=== PATIENT | male | born 1970 ===

== ENCOUNTER 2021-02-22 08:59 | Day surgery (SDC) | payer BC ==
[~2021-02-22 08:59] MED LIST: Lactated Ringers 1,000 ML IV SCH; Propofol 200 MG/20 ML SDV ONE; fentaNYL 100 MCG/2 ML SDV ONE
--- NOTE | 2021-02-22 09:36 | PCM.PREANE ---
Preanesthetic Assessment - Anesthesia/Transfusion/Family Hx Anesthesia History: Prior Anesthesia Without Reaction Family History of Anesthesia Reaction: No Transfusion History: No Prior Transfusion(s) - Review of Systems General: No Symptoms Pulmonary: No Symptoms Cardiovascular: No Symptoms Gastrointestinal: No Symptoms Neurological: No Symptoms Other: Reports: None - Physical Assessment NPO Status Date: 02/22/21 NPO Status Time: 00:01 Height: 6 ft 2 in Weight: 271 lb ASA Class: 2 Mental Status: Alert & Oriented x3 Airway Class: Mallampati = 2 Dentition: Reports: Normal Dentition ROM/Head Extension: Limited/Partial Lungs: Clear to Auscultation, Normal Respiratory Effort Cardiovascular: Regular Rate, Regular Rhythm - Allergies Allergies/Adverse Reactions: Allergies Allergy/AdvReac Type Severity Reaction Status Date / Time No Known Allergies Allergy Verified 02/18/21 11:38 - Anesthesia Plan Pre-Op Medication Ordered: None - Acknowledgements Anesthesia Type Planned: General Anesthesia Pt an Appropriate Candidate for the Planned Anesthesia: Yes Alternatives and Risks of Anesthesia Discussed w Pt/Guardian: Yes Pt/Guardian Understands and Agrees with Anesthesia Plan: Yes Additional Comments: npo hayfever asthma daily inhalers htn no cv problems obesity bmi 35 tob none etoh none L corneal transplant 2006 PreAnesthesia Questionnaire HEENT History: Reports: Other (See Below) Other HEENT History: wears contacts Cardiovascular History: Reports: Hypertension Respiratory History: Reports: Asthma Gastrointestinal History: Reports: Gastritis, GERD Genitourinary History: Reports: Renal Calculus Musculoskeletal History: Reports: None Neurological History: Reports: None Psychiatric History: Reports: None Endocrine/Metabolic History: Reports: Obesity/BMI 30+ Hematologic History: Reports: Anemia Immunologic History: Reports: None Oncologic (Cancer) History: Reports: None Dermatologic History: Reports: None - Past Surgical History Head Surgeries/Procedures: Reports: None HEENT Surgical History: Reports: Cataract Surgery Other HEENT Surgeries/Procedures: hx corneal transplant Cardiovascular Surgical History: Reports: None Respiratory Surgical History: Reports: None GI Surgical History: Reports: Cholecystectomy, Colonoscopy, EGD, Hernia, Inguinal Male Surgical History: Reports: Lithotripsy ([facility]) Endocrine Surgical History: Reports: None Neurological Surgical History: Reports: None Musculoskeletal Surgical History: Reports: None Oncologic Surgical History: Reports: None Dermatological Surgical History: Reports: None - SUBSTANCE USE Tobacco Use Status *Q: Never Tobacco User Recreational Drug Use History: No - HOME MEDS Home Medications: Home Meds Omeprazole [Prilosec] 20 mg PO DAILY 05/24/15 [History] Albuterol [Ventolin HFA] 1 - 2 puff INH ASDIRECTED PRN 02/18/21 [History] Budesonide/Formoterol Fumarate [Symbicort 80-4.5 MCG] 1 inhalation INH ASDIRECTED 02/18/21 [History] Montelukast Sodium [Singulair] 10 mg PO DAILY 02/18/21 [History] Valsartan 160 mg PO DAILY 02/18/21 [History] amLODIPine [Norvasc] 5 mg PO DAILY 02/18/21 [History] hydroCHLOROthiazide [Hydrochlorothiazide] 12.5 mg PO DAILY 02/18/21 [History] - CURRENT (IN HOUSE) MEDS Current Meds: Current Medications Lactated Ringer's (Ringers, Lactated) 1,000 mls @ 125 mls/hr IV ASDIRECTED MICAELA Discontinued Medications Fentanyl (Fentanyl 100 Mcg/2 Ml Sdv) Confirm Administered Dose 100 mcg .ROUTE .STK-MED ONE Stop: 02/22/21 06:59 Lidocaine HCl (Lidocaine 1% 5 Ml Sdv) Confirm Administered Dose 5 ml .ROUTE .STK-MED ONE Stop: 02/22/21 06:58 Propofol (Propofol 200 Mg/20 Ml Sdv) Confirm Administered Dose 400 mg .ROUTE .STK-MED ONE Stop: 02/22/21 06:59
[2021-02-22] MEDS ORDERED: Propofol 200 MG/20 ML SDV ONE ×2 (11:17→11:36)
[2021-02-22] MEDS ORDERED: Dexamethasone 4 MG/ML 5 ML MDV ONE (11:30)
--- NOTE | 2021-02-22 12:23 | PCM.OPNOTE ---
- General Post-Op/Procedure Note Date of Surgery/Procedure: 02/22/21 Operative Procedure(s): Esophagogastroscopy with biopsy. Colonoscopy. Pre Op Diagnosis: Anemia. Post-Op Diagnosis: Diaphragmatic hernia. Gastritis. No evidence of colonic neoplasia. Anesthesia Technique: MAC (ASA II) Primary Surgeon: Norbert Lilly Customer Engineer: Caroline Gillette Condition: Good Free Text/Narrative:: DICTATION [id number] CPT CODE [id number]
[2021-02-22] MEDS ORDERED: Lactated Ringers 1,000 ML IV SCH (12:30)
--- NOTE | 2021-02-22 12:36 | PCM.POSTAN ---
POST ANESTHESIA ASSESSMENT - MENTAL STATUS Mental Status: Alert, Oriented - VITAL SIGNS Vital Signs: Last Vital Signs Temp 36.5 C 02/22/21 09:20 Pulse 50 L 02/22/21 12:30 Resp 12 02/22/21 12:30 BP 107/66 02/22/21 12:30 Pulse Ox 94 L 02/22/21 12:30 - RESPIRATORY Respiratory Status: Respiratory Rate WNL, Airway Patent, O2 Saturation Stable - CARDIOVASCULAR CV Status: Pulse Rate WNL, Blood Pressure Stable - GASTROINTESTINAL GI Status: No Symptoms - PAIN Pain Score: 0 - POST OP HYDRATION Hydration Status: Adequate & Stable
--- NOTE | 2021-02-22 13:01 | PCM48HPAN ---
Post Anesthesia Note - EVALUATION WITHIN 48HRS OF ANESTHETIC Vital Signs in Normal Range: Yes Patient Participated in Evaluation: Yes Respiratory Function Stable: Yes Airway Patent: Yes Cardiovascular Function Stable: Yes Hydration Status Stable: Yes Pain Control Satisfactory: Yes Nausea and Vomiting Control Satisfactory: Yes Mental Status Recovered: Yes Vital Signs: Last Vital Signs Temp 36.5 C 02/22/21 09:20 Pulse 50 L 02/22/21 12:30 Resp 12 02/22/21 12:30 BP 107/66 02/22/21 12:30 Pulse Ox 94 L 02/22/21 12:30
[2021-02-22 13:37] VITALS: BP 119/80; PULSE 59
--- NOTE | 2021-02-25 07:44 | OR ---
SURGEON: Norbert Lilly M.D. DATE OF PROCEDURE: 02/22/2021 OPERATION PERFORMED: Esophagogastroscopy. PRIMARY SURGEON: Norbert Lilly M.D. CONSERVATION SCIENTIST: care team assistant: MELODY Hernandez student. ANESTHESIA: MAC. ASA CLASSIFICATION: II. PREOPERATIVE DIAGNOSIS: Anemia. POSTOPERATIVE DIAGNOSIS: Probable paraesophageal hernia, unable to advance the gastroscope to the pylorus. DESCRIPTION OF PROCEDURE: The patient was taken to the endoscopy room and positioned on the endoscopy table in the left lateral decubitus position. Time-out was called for appropriate identification of the patient and procedure. Monitored anesthesia care was provided. The bite block was placed between the patient's teeth. The gastroscope was inserted through the bite block into the oropharynx and advanced through the esophagus into the stomach. Despite multiple attempts, the gastroscope would always retroflex and visualize the gastroesophageal junction. I could see what was felt to be the incisura angularis and attempt to slowly withdraw the scope in hopes of getting into the distal stomach and subsequently through the pylorus. Despite a prolonged effort, we were never able to advance the scope to the distal stomach confirming the pylorus or duodenum. Biopsies of the distal portion of the stomach that I could reach were obtained to look for Helicobacter pylori. The GE junction was visualized multiple times in a retroflexed view and my thought was this may well represent a very large paraesophageal hernia and an abnormally shaped stomach. It was felt best to terminate the procedure as despite all those maneuvers, we never were able to cannulate the pylorus. The midportion of the esophagus at about 30 cm also showed some changes in the lining suggestive of esophagitis. Separate biopsies of this area were obtained. The gastroscope was then slowly withdrawn. The esophagus itself demonstrated good contractility. The vocal cords were visualized as the scope was withdrawn and noted to move symmetrically. Following colonoscopy, the patient was taken to recovery room in satisfactory condition. I think this patient would benefit from an upper GI contrast series or possibly CT scan of the chest and abdomen to try and delineate his gastric anatomy. CHARLI / LACEY /[id number] SYLVIA
--- NOTE | 2021-02-25 08:25 | OR ---
SURGEON: Norbert Lilly M.D. DATE OF PROCEDURE: 02/22/2021 OPERATION PERFORMED: Colonoscopy. PRIMARY SURGEON: Norbert Lilly M.D. GLOVE BRUSHER: resident assistant: MELODY Landaverde student. ANESTHESIA: MAC. ASA CLASSIFICATION: II. PREOPERATIVE DIAGNOSIS: Anemia. POSTOPERATIVE DIAGNOSIS: No evidence of neoplasia. DESCRIPTION OF PROCEDURE: With the patient having completed upper GI endoscopy, he was maintained in the left lateral decubitus position. The colonoscope was inserted into the rectum and advanced with minimal difficulty to the cecum. The cecum was identified by internal landmarks and external pressure. The colonoscope was retroflexed to visualize the ascending colon from below and then straightened and slowly withdrawn. The cecum, ascending colon, hepatic flexure, transverse colon, splenic flexure, descending colon, sigmoid colon, and rectum were very well visualized. No tumors, polyps, diverticula, or angiodysplastic changes were noted anywhere in the lower gastrointestinal tract. No blood was seen in the colon. Once the colonoscope was withdrawn to the rectum, it was retroflexed to visualize the anal orifice from above. No tumors or polyps were seen and there were no acute hemorrhoidal changes. The colonoscope was then straightened, the rectum aspirated, and the colonoscope removed. The patient tolerated the procedure well and was taken to recovery room in stable condition. CHARLI / LACEY /[id number]
== END 2021-02-22 10:45 | disposition home or self-care (01) ==
LOC: MW.SDS 08:59
PROVIDERS: ATTEND Surgery
DX: K20.90 Esophagitis, unspecified without bleeding (principal); K31.89 Other diseases of stomach and duodenum; K44.9 Diaphragmatic hernia without obstruction or gangrene; D64.9 Anemia, unspecified; I10 Essential (primary) hypertension; J45.909 Unspecified asthma, uncomplicated; E66.9 Obesity, unspecified; Z68.34 Body mass index [BMI] 34.0-34.9, adult; Z98.890 Other specified postprocedural states; Z87.442 Personal history of urinary calculi
CPT/HCPCS: 43239; 45378; 88305; 88312; J1100; J2704; J3010; J7120; 00813